=== PATIENT | male | born 1950 | race Caucasian/White ===

== ENCOUNTER 2019-03-06 13:26 | Emergency (ER) | payer MEDICARE ==
[~2019-03-06] VITALS: Ht 170.2 cm; Wt 111.4 kg
--- NOTE | 2019-03-06 13:29 | NUR ---
TIA- DAUGHTER'S PHONE NUMBER [phone]. PLEASE CALL WITH ANY UPDATES.
[2019-03-06 14:09] LABS: BASOPHILS # (AUTO) 0.1 X10'3 (0-0.2); BASOPHILS % (AUTO) 0.8 % (0-1); EOSINOPHILS # (AUTO) 0.1 X10'3 (0-0.9); HEMATOCRIT 36.2 % (42.0-52.0); LYMPHOCYTES # (AUTO) 1.3 X10'3 (1.1-4.8); LYMPHOCYTES % (AUTO) 10.5 % (21-51); MEAN CORPUSCULAR HEMOGLOBIN 30.8 PG (27.0-31.0); MEAN CORPUSCULAR HGB CONC 33.1 g/dL (33.0-36.5); MEAN CORPUSCULAR VOLUME 93.2 FL (78-98); MEAN PLATELET VOLUME 8.4 FL (7.4-10.4); MONOCYTES # (AUTO) 0.8 X10'3 (0-0.9); MONOCYTES % (AUTO) 6.7 % (2-12); NEUTROPHILS # (AUTO) 10.1 X10'3 (1.8-7.7); PLATELET COUNT 190 X10'3 (140-440); RED BLOOD COUNT 3.88 X10'6 (4.70-6.10); RED CELL DISTRIBUTION WIDTH 14.8 % (11.5-14.5); WHITE BLOOD COUNT 12.4 X10'3 (4.5-11.0)
[2019-03-06 14:34] LABS: ALANINE AMINOTRANSFERASE 41 U/L (12-78); ALBUMIN 2.6 G/DL (3.4-5.0); ALBUMIN/GLOBULIN RATIO 0.5 (1.1-1.5); ALKALINE PHOSPHATASE 181 IU/L (46-116); ANION GAP 8 (8-16); ASPARTATE AMINO TRANSFERASE 22 U/L (10-37); BILIRUBIN,TOTAL 1.2 MG/DL (0.1-1.0); BLOOD UREA NITROGEN 12 MG/DL (7-18); C-REACTIVE PROTEIN 4.81 MG/DL (0.0-0.5); CALCIUM 8.7 MG/DL (8.5-10.1); CHLORIDE 103 MMOL/L (99-107); CREATININE 0.86 MG/DL (0.60-1.10); GLUCOSE 111 MG/DL (70-104); POTASSIUM 4.4 MMOL/L (3.5-5.1); SODIUM 135 MMOL/L (135-145); TOTAL CARBON DIOXIDE 24.3 MMOL/L (24-32); TOTAL PROTEIN 7.5 G/DL (6.4-8.2); eGFR 88 ML/MIN
[2019-03-06 15:06] VITALS: BP 143/67
[2019-03-06] MEDS ORDERED: DOXY100C43 PO (16:25)
[2019-03-06] MEDS ORDERED: COLC1TAB2 PO (16:25)
--- NOTE | 2019-03-06 17:21 | NUR ---
[facility] CONTACTED FOR TRANSPORT, NOT ETA GIVEN DUE TO HIGH 911 CALL VOLUMES
--- NOTE | 2019-03-06 18:51 | NUR ---
SPOKE WITH [facility] DISPATCH..WAITING FOR THEM TO BE AT [place] SOON THEY CAN THEY WILL SEND A UNIT FOR HIM. WILL KEEP IN CONTACT WITH [facility] IN REGARDS TO AN ETA.
--- NOTE | 2019-03-06 19:39 | NUR ---
ROUNDED ON PT, PT FOUND COVERED IN BLOOD AND URINE. PT SEEMED TO HAVE SCRATCH A SCAB ON LEFT HAND. BANDAGE PLACED. GOWN CHANGED AND ORIENTED PT TO URINAL AND CALL LIGHT.
== END 2019-03-06 20:21 ==
LOC: ER 13:28
DX: S80.11XA Contusion of right lower leg, initial encounter (principal); L03.115 Cellulitis of right lower limb; M10.9 Gout, unspecified; R22.31 Localized swelling, mass and lump, right upper limb; R41.82 Altered mental status, unspecified; Z79.899 Other long term (current) drug therapy; X58.XXXA Exposure to other specified factors, initial encounter; Y93.89 Activity, other specified; Y92.89 Other specified places as the place of occurrence of the external cause; Y99.8 Other external cause status
CPT/HCPCS: 36415; 80053; 83605; 83735; 84145; 84550; 85025; 85610; 86140; 87040; 93971; 99284